=== PATIENT | male | born 1960 | race Two or more races ===

== ENCOUNTER 2017-07-28 21:24 | Emergency (ER) | payer OTHER ==
[~2017-07-28] VITALS: Ht 180.3 cm; Wt 136.1 kg
[2017-07-28 21:54] VITALS: BP 171/93
[2017-07-28 22:58] LABS: Basophils # (auto) 0 uL; Basophils % (auto) 0.3 % (0.0-2.0); Eosinophils # (auto) 0 uL; Eosinophils % (auto) 0.4 % (0.0-7.0); Hematocrit 43.5 % (41.0-53.0); Hemoglobin 14.8 g/dL (13.5-17.5); Lymphocytes # (auto) 1.1 uL; Lymphocytes % (auto) 11.4 % (10.0-50.0); Mean Corpuscular Hemoglobin 30.5 pg (28.0-32.0); Mean Corpuscular Volume 89.8 fL (80.0-100.0); Monocytes # (auto) 0.9 uL; Monocytes % (auto) 9.4 % (0.0-12.0); Neutrophils # (auto) 7.7 uL; Neutrophils % (auto) 78.5 % (37.0-80.0); Platelet Count (auto) 213 10^3/uL (140-450); Red Blood Cells 4.84 10^6/uL (4.5-5.90); Red Cell Distribution Width 14.2 % (11.8-14.3); White Blood Cell 9.8 10^3/uL (4.4-10.8)
[2017-07-28 23:08] LABS: Albumin 3.6 g/dL (3.4-5.0); BUN/Creatinine Ratio 13.7; Calcium 9.2 mg/dL (8.5-10.1)
[2017-07-28 23:11] LABS: Bilirubin, Total 0.4 mg/dL (0.2-1.0); Magnesium 1.9 mg/dL (1.6-2.6); Total Protein 7.8 g/dL (6.4-8.2)
[2017-07-28 23:13] LABS: Potassium 3.4 mmol/L (3.5-5.1)
== END 2017-07-29 00:37 | disposition home or self-care (01) ==
LOC: ER 21:24
DX: R00.2 Palpitations (principal); F41.9 Anxiety disorder, unspecified; E11.9 Type 2 diabetes mellitus without complications; K21.9 Gastro-esophageal reflux disease without esophagitis
CPT/HCPCS: 36415; 71045; 80053; 83735; 83880; 84484; 85025; 93005